=== PATIENT | female | born 1940 | race Caucasian/White ===

== ENCOUNTER → 2016-12-13 | Outpatient (CLI) | payer OTHER ==
[~2016-12-13] MED LIST: ASPEC325 PO; ENAL5TAB83 PO; GLC500 PO; INSU1INJ7 SC; ISOS30TA3 PO; LSX/40 PO; METO50TA7 PO; MULTTAB58 PO; OXGN; SIMV80TA2 PO; SITA100T3 PO; SPIR25TA PO; TRAZ50TA35 PO
--- NOTE | 2016-12-13 15:47 | MAMMOGRAPHY REPORT ---
BILATERAL DIGITAL SCREENING MAMMOGRAM TOMOSYNTHESIS WITH CAD: 12/13/2016 CLINICAL HISTORY: Asymptomatic. Personal history of breast cancer. TECHNIQUE: Breast tomosynthesis in addition to standard 2D mammography was performed. Current study was also evaluated with a Computer Aided Detection (CAD) system. COMPARISON: Comparison is made to exams dated: 11/09/2015 mammogram, 11/03/2014 mammogram, 10/01/2012 elva mogram, 09/29/2011 mammogram, 09/20/2010 mammogram, and 09/17/2009 mammogram - [facility]. BREAST COMPOSITION: The tissue of both breasts is almost entirely fatty. FINDINGS: The left MLO view is suboptimal due to a large pacemaker in the superior left chest wall, a nd inability to obtain inclusion of posterior tissue within the [id number]. There is evidence of prior surgery in the left breast, with expected architectural distortion and surgical clips in the la teral breast. There are scattered benign-appearing calcifications and moderate vascular calcificatio n. No new suspicious mass, architectural distortion or cluster of microcalcifications is seen. IMPRESSION: ACR BI-RADS CATEGORY 1: NEGATIVE There is no mammographic evidence of malignancy, within the limitations of the exam with difficulty i ncluding posterior left breast tissue on the MLO view due to a large pacemaker. A 1 year screening ma mmogram is recommended. The patient will receive written notification of the results. Approximately 10% of breast cancers are not detected with mammography. A negative mammographic report should not delay biopsy if a clinically suggestive mass is present. Rosetta Dos Santos M.D. ay/:12/13/2016 13:52:25 Managed Care Director: Alaina NOWAK(R)(M), [facility] letter sent: Normal 1/2 BI-RADS Code: ACR BI-RADS Category 1: Negative
== END | disposition home or self-care (01) ==
LOC: C.MAMM 13:14
PROVIDERS: ATTEND Family Medicine
DX: Z12.31 Encounter for screening mammogram for malignant neoplasm of breast (principal); Z85.3 Personal history of malignant neoplasm of breast

== ENCOUNTER 2018-09-24 10:57 | Inpatient (IN) ==
[2018-09-24] MEDS ORDERED: NALOXONE HCL 0.4 MG/1 ML VIAL/CARP ONE (11:02)
[2018-09-24] MEDS ORDERED: RAPID SEQUENCE INDUCTION BAG ONE (11:04)
[2018-09-24] MEDS ORDERED: VECURONIUM BROMIDE 10 MG VIAL IV STA (11:14)
[2018-09-24] MEDS ORDERED: PROPOFOL IV EMULSION 10 MG/ML 100 ML VIAL IV ONE (11:15)
[2018-09-24] MEDS ORDERED: ALBUT/IPRATROP 3MG/0.5MG NEB 3 ML VIAL NEB ONE (11:15)
[2018-09-24] MEDS ORDERED: MAGNESIUM SULFATE / D5W 1 GM/100 ML BAG IV ONE (11:15)
[2018-09-24] MEDS ORDERED: FUROSEMIDE 40 MG/4 ML VIAL IV STA (11:22)
[2018-09-24] MEDS ORDERED: PIPERACILL/TAZOBAC CONSULT ACTIVE PRN ×2 (11:22→14:18)
[2018-09-24] MEDS ORDERED: LEVOFLOXACIN/D5W 750 MG/150 ML BAG IV STA (11:22)
[2018-09-24] MEDS ORDERED: VANCOMYCIN CONSULT ACTIVE PRN ×2 (11:22→14:17)
[2018-09-24] MEDS ORDERED: VANCOMYCIN HCL 1,000 MG/270 ML BAG IV STA (11:22)
[2018-09-24] MEDS ORDERED: PIPERACILLIN/TAZOBACTAM 4.5 GM/120 ML BAG IV ONE (11:22)
--- NOTE | 2018-09-24 11:32 | XRay Report ---
XR chest 1V portable HISTORY: 78 years-old Female Sepsis acute sepsis COMPARISON: Chest radiograph 11/12/2011 TECHNIQUE: Supine AP view of the chest FINDINGS: Cardiac silhouette is upper limits of normal in size. Mitral annular calcifications noted. Calcificat ion the thoracic aortic arch. Left subclavian pacer/AICD redemonstrated. No pneumothorax. Blunting of the costophrenic angles with hyperinflation. Bilateral right greater than left mixed interstitial an d alveolar opacities are noted. Lungs are hyperinflated. Degenerative changes of the shoulders and sp ine. Endotracheal tube overlies the midline, 5.6 cm superior to the urmila. IMPRESSION: 1. Endotracheal tube terminates 5.6 cm superior to the urmila. 2. Right greater than left bilateral mixed interstitial and alveolar opacities are suggestive of mult ifocal pneumonia with asymmetric pulmonary edema considered less likely. 3. Possible trace pleural effusions. The above report was generated using voice recognition software. It may contain grammatical, syntax o r spelling errors. Electronically signed by: Stas Ordaz M.D. 09/24/2018 11:31 AM
[2018-09-24 11:41] LABS: Hematocrit (blood only) 41.6 % (37-47); Hemoglobin 13.7 g/dL (12.0-16.0); Mean Corpuscular Hgb Conc 32.9 g/dL (32-36); Mean Corpuscular Volume 102.2 fL (80-100); Mean Platelet Volume 11.7 fL (7.4-10.4); Platelet Count 232 K/uL (130-400); RDW Coefficient of Variation 13.2 % (11.5-14.5); RDW Standard Deviation 49.6 fL (36.4-46.3); Red Blood Count 4.07 M/uL (4.2-5.4); White Blood Count 17.57 K/uL (4.8-10.8)
[2018-09-24 11:45] LABS: iSTAT Creatinine 1.2 mg/dl (0.6-1.3); iSTAT Hemoglobin 13.9 g/dl (12.0-16.0); iSTAT Ionized Calcium 1.21 mmol/l (1.12-1.32)
[2018-09-24 11:53] LABS: Partial Thromboplastin Ratio 0.9; Partial Thromboplastin Time 23.9 Seconds (21.0-31.0); Prothrombin Time 10.1 Seconds (9.0-12.0)
[2018-09-24 11:55] LABS: Alanine Aminotransferase 24 U/L (12-78); Albumin Level 3.1 gm/dl (3.4-5.0); Aspartate Aminotransferase 30 U/L (15-37); BUN Creatinine Ratio 12.5 (10-20); Blood Urea Nitrogen 17 mg/dl (7-18); Calcium 8.8 mg/dl (8.5-10.1); Carbon Dioxide 27 mmol/L (21-32); Chloride 109 mmol/L (98-107); Est GFR (African American) 43.4; Est GFR (Non-African American) 37.4; Glucose 261 mg/dl (70-99); Sodium 143 mmol/L (136-145)
[2018-09-24] MEDS ORDERED: ICU PROTOCOL FOR HYPERGLYCEMIA PRN (11:59)
[2018-09-24 12:00] LABS: Albumin Globulin Ratio 0.8 (0.9-2); Alkaline Phosphatase 78 U/L (45-117); Bilirubin,Total 0.4 mg/dl (0.2-1); Creatine Kinase 42 U/L (26-192); Creatine Kinase MB < 1.0 ng/ml (0.5-3.6); NT Pro B Type Natriuretic Pept 5701 pg/ml (0-1800); Total Protein 7.1 gm/dl (6.4-8.2); Troponin I < 0.015 ng/ml (0-0.045)
[2018-09-24 12:04] LABS: Basophils # (auto) 0.08 K/uL (0-0.2); Basophils % (auto) 0.5 %; Echinocytes 1+; Eosinophils # (auto) 0.16 K/uL (0-0.5); Eosinophils % (auto) 0.9 %; Immature Granulocytes # (auto) 0.07 K/uL (0.00-0.02); Immature Granulocytes % (auto) 0.4 %; Lymphocytes # (auto) 9.04 K/uL (1.2-3.4); Lymphocytes % (auto) 51.5 %; Monocytes # (auto) 0.69 K/uL (0.11-0.59); Monocytes % (auto) 3.9 %; Neutrophils # (auto) 7.53 K/uL (1.4-6.5); Neutrophils % (auto) 42.8 %
--- NOTE | 2018-09-24 12:09 | History & Physical Report ---
Date of Service September 24, 2018 Assessment & Plan (1) Acute respiratory failure requiring reintubation: -patient was intubated in the emergency room on 09/14/18 for acute respiratory failure by ED physician acute respiratory failure may be due to acute on chronic systolic heart failure vs pneumonia vs COPD exacerbation -admission CXR: Right greater than left bilateral mixed interstitial and alveolar opacities are suggestive of multifocal pneumonia with asymmetric pulmonary edema considered less likely. Possible trace pleural effusions. -on mechanical intubation -history of COPD and tobacco use, give nebulizer treatments q6 hours, advise tobacco cessation when patient can be extubated an stable -started empirically on Zosyn and Levaquin antibiotic by ED provider, continue for now, follow blood cultures and procalcitonin -chronic ischemic heart disease with diffuse multifactorial cardiomyopathy, Class III congestive heart failure s/p 01/2006 biventricular pacemaker/defibrillator implantation with generator exchange and RV lead replacement in June 2011 (last generator exchange on September 25, 2017) -obtain repeat echocardiogram -admission BNP above 5000, start Lasix 40 mg IV BID as blood pressure tolerates -as patient is intubated, will hold off long acting Metoprolol succinate 50 mg BID as updated in 08/28/18 outpatient cardiology notes -use metoprolol 5 mg IV q4 hours as needed if heart rate above 110 bpm -hold off home dose isosorbide 30 mg daily for now -hold off atorvastatin for now -continue wren while intubated -ICU admission from ED on 09/24/18, appreciate ICU recommendations and management Type 2 diabetes mellitus without usp current use of insulin -outpatient HbA1c under 6.5 -hold off metformin for now -sliding scale insulin as needed chronic kidney disease -as per outpatient notes -renally dose medications as needed -monitor renal function other pertinent medical issues in the past as per outpatient notes carotid occlusive disease S/P right carotid endarterectomy, prior cerebral infarction -continue home dose aspirin 324 mg daily DVT ppx: heparin subcut q 8 hours Code Status -patient was intubated in the emergency room on 09/14/18 for acute respiratory failure by ED physician -As per outpatient Living Will uploaded to outpatient [facility] records, patient had signed on 08/25/03 Living Will that if patient was in a terminal ondition or in a state of permanent unconsciousness that she do no want cardiac resuscitation, do not want mechanical respiration, do not want tube feeding or any artificial form of nutrition, do not want blood or blood product, do not want any form of surgery of invasive diagnostic tests, kidney dialysis, do no want antibiotics. -Patient had designated in the Living Will the surrogate who is Gonzales Braxton [phone] who is patient's family member (son) who was not available to discuss when patient in the ED -ICU staff and hospitalist was able to contact on telephone Alaina Ivory [phone] on goals of care and she said she will discuss further with medical providers after talking with other family members Patient admitted by hospitalist Dr. Melvin Tatum and will be followed by hospitalist Dr. Fish starting on 09/25/18 History of Present Illness as per 08/19/18 cardiology notes: "History includes chronic ischemic heart disease with diffuse multifactorial cardiomyopathy, Class III congestive heart failure s/p 01/2006 biventricular pacemaker/defibrillator implantation with generator exchange and RV lead replacement in June 2011 (last generator exchange on September 25, 2017), severe chronic obstructive pulmonary disease with hypoxemia (O2 QHS) and continued tobacco abuse, type II diabetes mellitus, stage III chronic kidney disease, carotid occlusive disease S/P right carotid endarterectomy, prior cerebral infarction, hypertension, hyperlipidemia, breast cancer, obesity, arthritis, and depression" patient was intubated in the emergency room on 09/14/18 for acute respiratory failure by ED physician and started on broad spectrum antibiotics and ED provider concerned whether there was CHF exacerbation. ICU was contacted. Hospitalist was also contacted for admission History could not be obtained from patient as she was intubated an sedated. As per outpatient Living Will uploaded to outpatient [facility] records, patient had signed on 08/25/03 Living Will that if patient was in a terminal ondition or in a state of permanent unconsciousness that she do no want cardiac resuscitation, do not want mechanical respiration, do not want tube feeding or any artificial form of nutrition, do not want blood or blood product, do not want any form of surgery of invasive diagnostic tests, kidney dialysis, do no want antibiotics. Patient had designated in the Living Will the surrogate who is Gonzales Braxton [phone] who is patient's family member (son) who was not available to discuss when patient in the ED ICU staff and hospitalist was able to contact on telephone Alaina Ivory [phone] on goals of care and she said she will discuss further with medical providers after talking with other family members Primary Care Provider: Eugene Zaman MD Allergies Allergy/AdvReac Type Severity Reaction Status Date / Time No Known Allergies Allergy Unknown Verified 09/25/17 06:31 Home Medications Home Medications Medication Instructions Recorded Confirmed Type acetaminophen [Tylenol] 325 mg PO Q6H PRN 09/24/18 09/24/18 History albuterol sulfate [ProAir HFA] 2 puff INHALATION Q4H PRN 09/24/18 09/24/18 History alendronate 70 mg PO WK 09/24/18 09/24/18 History aspirin 325 mg PO DAILY 09/24/18 09/24/18 History atorvastatin 40 mg PO DAILY 09/24/18 09/24/18 History calcium carbonate [Calcium 600] 600 mg PO DAILY 09/24/18 09/24/18 History furosemide 20 mg PO DAILY 09/24/18 09/24/18 History gabapentin 300 mg PO TID 09/24/18 09/24/18 History isosorbide mononitrate 30 mg PO DAILY 09/24/18 09/24/18 History levalbuterol HCl [Xopenex] 0.63 mg INHALATION QID PRN 09/24/18 09/24/18 History metformin 1,000 mg PO BID 09/24/18 09/24/18 History metoprolol succinate 50 mg PO BID 09/24/18 09/24/18 History multivitamin 1 tab PO DAILY 09/24/18 09/24/18 History prednisone 0 mg PO UD 09/24/18 09/24/18 History tiotropium bromide [Spiriva with 1 cap INHALATION DAILY 09/24/18 09/24/18 History HandiHaler] Past Med/Surg History Medical History COPD (chronic obstructive pulmonary disease) (Chronic) Social History Smoking Status: Current every day smoker Review of Systems Review of Systems: Unobtainable due to endotracheal tube Physical Exam Constitutional: intubated Eyes: + dilated pupils Neck: normal visual inspection Respiratory: intubate don mechanical ventiltation Cardiovascular: Rate/Rhythm: regular rate and regular rhythm Gastrointestinal (Abdomen): normal bowel sounds, soft, nontender, no hepatosplenomegaly Musculoskeletal: Head/Neck/Chest: normocephalic and head atraumatic Neurologic: obtunded, sedated. eyes are minimally reactive to light Genitourinary: wren Results & Data Vital Signs (Past 12 Hours) Vital Signs Temp Pulse Pulse Resp BP Pulse Ox 09/24/18 12:00 95 H 151/81 H 95 09/24/18 11:55 96 H 157/84 H 93 09/24/18 11:54 36.6 C 09/24/18 11:51 95 H 143/68 H 96 09/24/18 11:47 90 14 96 09/24/18 11:45 94 H 124/81 96 09/24/18 11:40 94 H 129/89 95 09/24/18 11:37 90 14 96 09/24/18 11:35 92 H 137/76 96 09/24/18 11:30 90 136/71 96 09/24/18 11:26 88 96 09/24/18 11:25 86 116/69 96 09/24/18 11:21 85 100/66 97 09/24/18 11:20 45 L 97 09/24/18 11:15 87 133/71 97 09/24/18 11:14 93 H 121/100 95 09/24/18 11:10 98 H 95 09/24/18 11:05 103 H 85 L 09/24/18 11:04 102 H 85 L 09/24/18 11:02 103 H 132/86 82 L
[2018-09-24 12:14] LABS: Appearance Urine Turbid (Clear); Bacteria Urine Automated 4+ (Negative); Bilirubin Urine Negative (Negative); Blood Urine 2+ (Negative); Color Urine Yellow; Epithelial Cell Urine Auto >30 /lpf (0-5); Glucose Urine UA Negative (Negative); Ketones Urine Negative (Negative); Leukocyte Esterase Urine 3+ (Negative); Nitrite Urine Positive (Negative); Protein Urine 3+ (Negative); Specific Gravity Urine 1.016 (1.000-1.030); Urobilinogen Urine Negative (Negative); WBC Urine Automated >30 /hpf (0-5); pH Urine 5.5 (4.5-7.5)
[2018-09-24 12:22] LABS: Cast Urine Automated 0 /lpf (0-5)
[2018-09-24] MEDS ORDERED: LEVALBUTEROL 1.25MG/0.5ML NEB NEB SCH ×2 (12:45→14:00)
[2018-09-24] MEDS ORDERED: OPTIRAY 320 125ml IV PRN (12:51)
--- NOTE | 2018-09-24 13:00 | CT Scan Report ---
CT SCAN OF THE BRAIN WITHOUT IV CONTRAST CLINICAL HISTORY: Change in mental status COMPARISON STUDY: No priors. TECHNIQUE: Unenhanced axial CT scan of the brain is performed from the vertex to the skull base. A do se lowering technique was utilized adhering to the principles of ALARA. FINDINGS: Brain parenchyma: There are age-related involutional changes noting mild subcortical and periventric ular microangiopathic change. There is no hemorrhage, mass effect, or evidence of acute territorial i schemia by CT criteria. A small chronic lacunar infarct is noted in the left cerebellar hemisphere. G ray-white matter differentiation is preserved. No extra-axial fluid collection is seen. Ventricles, sulci, cisterns: Prominent secondary to involutional change. Intracranial vasculature: There is atherosclerotic calcification of the cavernous carotid and vertebr al arteries. Calvarium: Unremarkable. Sinuses and mastoids: The visualized paranasal sinuses are clear. The mastoid air cells are well pneu matized. Orbits: The bony orbits are grossly intact. There are bilateral ocular lens implants. IMPRESSION: There is no hemorrhage, mass effect, or evidence of acute territorial ischemia by CT luisa amato. Electronically signed by: Edis Herrera M.D. 09/24/2018 12:59 PM
--- NOTE | 2018-09-24 13:10 | CT Scan Report ---
ABDOMEN AND PELVIS CT WITH IV CONTRAST CT DOSE: HISTORY: Generalized abdominal pain. TECHNIQUE: Multiaxial CT images of the abdomen and pelvis were performed following the use of intrave nous contrast. A dose lowering technique was utilized adhering to the principles of ALARA. COMPARISON STUDY: None. FINDINGS: Interlobular septal thickening, patchy airspace opacities, and small bilateral pleural effu sions at the lung bases consistent with pulmonary edema. The heart is mildly enlarged. Pacemaker wire s are noted. Nasogastric tube terminates in the gastric antrum. No pneumoperitoneum. No pneumatosis. No suspicious lytic or blastic osseous lesions. Extensive calcified plaque throughout the aorta, jason c, and renal arteries. The main portal vein is patent. Mild body wall edema. Cholecystectomy. Mild pe riportal edema. No hepatic or splenic masses. The adrenal glands and pancreas are unremarkable. No hy dronephrosis. Bilateral cortical renal scarring and bilateral renal cysts are noted. No retroperitone al lymphadenopathy. The bladder is decompressed by Newman catheter. The uterus and adnexa are unremark able. Mild bilateral perinephric edema. Colonic diverticulosis. No evidence for diverticulitis. Moder ate well-formed stool within the distal colon. The majority of the colon is decompressed resulting in suboptimal evaluation. However, there is no definite bowel wall thickening or obstruction. Normal ap pendix. IMPRESSION: 1. No bowel wall thickening or obstruction. 2. Normal appendix. 3. Pulmonary edema and small bilateral pleural effusions. This is better appreciated on the same day chest CTA. 4. Satisfactory support line placement as described above. 5. Mild body wall edema and mild bilateral perinephric edema. 6. Moderate well-formed stool within the distal colon. 7. Colonic diverticulosis. Electronically signed by: Sudheer Cuello M.D. 09/24/2018 1:09 PM
--- NOTE | 2018-09-24 13:11 | CT Scan Report ---
CT angio chest PE protocol CT DOSE: HISTORY: Chest pain PE TECHNIQUE: Multiaxial CT images of the chest were performed following the intravenous administration of contrast to evaluate the pulmonary arteries. Maximal intensity projection images were also obtaine d. A dose lowering technique was utilized adhering to the principles of ALARA. COMPARISON STUDY: None. FINDINGS: Pulmonary vasculature enhances appropriately. There are no fixed filling defects. Heart is mildly enlarged. Thoracic aorta is negative for aneurysm. There is no endotracheal tube 4.5 cm above the urmila. Nasogastric tube within the stomach. Attenuation of lung parenchyma shows diffuse bilateral parenchymal infiltrative change versus compone nt of pulmonary edema. There are small bilateral pleural effusions. Limited evaluation of the upper a bdomen is unremarkable. IMPRESSION: 1. No evidence of pulmonary embolus.. 2. Findings of diffuse bilateral pulmonary edema versus diffuse bilateral parenchymal infiltrative ch candido. 3. A moderate amount of debris is identified within the proximal to mid bronchial system. 4. Small bilateral pleural effusions. 5. Tube positions as noted and considered acceptable. The above report was generated using voice recognition software. It may contain grammatical, syntax or spelling errors. Electronically signed by: Eugene Simental M.D. 09/24/2018 1:09 PM
[2018-09-24] MEDS ORDERED: METOPROLOL TARTRATE 1 MG/ML VIAL IV PRN (13:14)
[2018-09-24] MEDS ORDERED: CARBOHYDRATES FOR HYPOGLYCEMIA PO PRN (13:14)
[2018-09-24] MEDS ORDERED: GLUCAGON FOR INJ 1 MG VIAL SQ PRN (13:14)
[2018-09-24] MEDS ORDERED: GLUCOSE 10 TABS/TUBE PO PRN (13:14)
[2018-09-24] MEDS ORDERED: GLUCOSE 40% GEL 15 GM TUBE PO PRN (13:14)
[2018-09-24] MEDS ORDERED: ACETAMINOPHEN 1000 MG/100 ML IV IV PRN (13:14)
[2018-09-24] MEDS ORDERED: DEXTROSE 50% 50 ML SYRINGE IV PRN (13:14)
--- NOTE | 2018-09-24 13:19 | CT Scan Report ---
CT ANGIOGRAM OF THE BRAIN; CT ANGIOGRAM OF THE NECK CLINICAL HISTORY: Change in mental status. COMPARISON STUDY: Unenhanced CT of the brain dated 09/24/2018. TECHNIQUE: Following the IV administration of 120 of Optiray 320, CT angiogram of the head and neck w as performed from the aortic arch to the vertex. Images are reviewed in the axial, sagittal, and [place] nal planes. 3-D MIPS images are created and assessed. IV contrast was administered without complicati on. All measurements were calculated based on NASCET criteria. A dose lowering technique was utilize d adhering to the principles of ALARA. The examination is degraded by motion artifact. CT DOSE: 1271.02 mGy.cm FINDINGS: Brain parenchyma: There is age-related involutional change noting mild subcortical and periventricula r microangiopathic disease. There is no hemorrhage, mass effect, or evidence of acute territorial isc hemia by CT criteria. There is no evidence of enhancing mass lesion on the angiogram phase images. Th e ventricles, sulci, and cisterns are prominent second or to involutional change. A chronic lacunar i nfarct is noted in the left cerebellar hemisphere. Zapien-white matter differentiation is preserved. No extra-axial fluid collection is seen. Thoracic aorta: There is atherosclerotic calcification of the thoracic aorta. Visualized portions of the thoracic aorta are normal in caliber. The aortic arch demonstrates standard 3-vessel anatomy. Right carotid arterial system: The right common carotid artery is widely patent, as are the right int ernal and external carotid arteries. There is dense atherosclerotic calcification of the carotid bulb with no significant luminal narrowing. There is tortuosity of the distal right internal carotid tabatha ry. Left carotid arterial system: The left common carotid artery is widely patent. There is advanced athe rosclerotic calcification of the carotid bulb and the proximal internal carotid artery which causes a pproximately 50% focal stenosis of the proximal left internal carotid artery (axial image #110). The remainder of the left internal carotid artery and the left external carotid artery are patent. Vertebral arteries: The vertebral arteries are widely patent bilaterally and codominant. Subclavian arteries: Widely patent bilaterally. Intracranial vasculature: There is atherosclerotic calcification of the cavernous carotid and vertebr al arteries. There is a large right posterior communicating artery. The internal carotid arteries are patent at the skull base, as are the anterior and middle cerebral arteries bilaterally. The vertebro basilar system and posterior cerebral arteries are widely patent. The vertebral arteries are codomina nt. There is no aneurysm, high-grade stenosis, or focal vessel cut off seen throughout the intracrani al circulation. Jugular veins: Widely patent bilaterally. Dural sinuses: Patent. Upper chest: Endotracheal and enteric tubes are in place. There is diffuse septal thickening and airs pace consolidation seen throughout the upper lobe lung parenchyma pacemaker leads are partially image d. Orbits: The bony orbits are intact. Orbital contents are normal in appearance noting bilateral ocular lens implants. Soft tissues: Layering fluid is noted within the pharynx. As noted above, endotracheal and enteric tu bes are in place. The thyroid gland is enlarged, heterogeneous, and multinodular. The largest nodule is seen in the left lobe and measures up to 3.1 cm. The salivary glands are normal in appearance. No cervical lymphadenopathy is seen. Skeletal structures: The skeletal structures are osteopenic. The calvarium appears intact. The cervic al spine is maintained noting multilevel spondylosis. Sinuses and mastoids: The paranasal sinuses are clear. The mastoid air cells are well pneumatized. IMPRESSION: 1. There is no hemorrhage, mass effect, or evidence of acute territorial ischemia by CT criteria noti ng angiographic phase technique. 2. Unremarkable CT angiogram of the brain. 3. Calcified atherosclerotic plaque causes approximately 50% luminal narrowing of the proximal left i nternal carotid artery. 4. Otherwise unremarkable CT angiogram of the neck. 5. Diffuse involving the septal thickening and airspace consolidation is seen throughout the upper lo be lung parenchyma. This likely represents congestive failure with interstitial edema. Correlate clin ically for evidence of superimposed pneumonia. Electronically signed by: Edis Herrera M.D. 09/24/2018 1:18 PM
[2018-09-24] MEDS ORDERED: FUROSEMIDE 40 MG in SYRINGE 0 ML IV SCH (13:20)
[2018-09-24] MEDS ORDERED: SEVERE STRESS LEVEL ONE (13:45)
[2018-09-24] MEDS ORDERED: INSULIN PROTOCOL GOAL RANGE ONE (13:45)
[2018-09-24] MEDS ORDERED: NovoLIN-R BOLUS FROM BAG IV ONE (14:00)
[2018-09-24] MEDS ORDERED: INSULIN REGULAR 250 UNITS in SODIUM CHLORIDE 0.9% 247.5 ML IV SCH (14:00)
[2018-09-24] MEDS ORDERED: HEPARIN SOD 5,000 UNIT/0.5 ML VIAL SQ SCH (14:00)
[2018-09-24] MEDS ORDERED: methylPREDNISolone 60 MG in SYRINGE 0 ML IV SCH (14:00)
[2018-09-24] MEDS ORDERED: LEVOFLOXACIN CONSULT ACTIVE PRN (14:18)
[2018-09-24] MEDS: ALBUT/IPRATROP 3MG/0.5MG NEB 3 ML VIAL INH SCH ×2 (14:35→18:19)
[2018-09-24 16:12] LABS: iSTAT Allen Test Pass; iSTAT Art Bld Gas pCO2 Correct 57 mmHg (35-46); iSTAT Art Bld Gas pH Corrected 7.239 (7.35-7.45); iSTAT Arterial Blood Gas HCO3 24 meg/L (19-24); iSTAT Arterial Blood Gas pCO2 57 mmHg (35-46); iSTAT Arterial Blood Gas pH 7.24 (7.35-7.45); iSTAT Carbon Dioxide 26 mEq/l (24-31); iSTAT FiO2 50 %; iSTAT Site L Radial
--- NOTE | 2018-09-24 16:23 | Pharmacy Report ---
Pharmacy Abx Dose Short Note - Date of Service September 24, 2018 - Assessment & Plan Assessment * 78 year old F intubated in ICU with PNA vs. COPD exacerbation receiving Zosyn, levofloxacin, and vancomycin * Nasal MRSA swab pending * Procalcitonin negative on admission. Ordered repeat for tomorrow as peak may not be seen for 6/24 hours. * Renal - SCr elevated on admission, but unknown baseline. Estimated CrCL no better than 25 mL/min but could be worse if baseline is lower. Vancomycin * 16 mg/kg ordered in ED. Will give one-time supplemental dose now to bring up to a total of 25 mg/kg * Will dose by level for now 2nd uncertain clearance / renal function * Estimated t1/2 27 hours at this time - OK to wait until tomorrow AM to check level Plan * Vancomycin 500 mg IV x1 now (in addition to 1000 mg in ED) * Random level with AM labs tomorrow Pharmacy will continue to follow and will adjust dose/frequency as necessary. Thank you.
[2018-09-24] MEDS ORDERED: VANCOMYCIN HCL 500 MG in 0.9 % SODIUM CHLORIDE 100 ML IV ONE (16:30)
[2018-09-24] MEDS ORDERED: INSULIN ASPART 100 UNITS/ML 3 ML PEN SC SCH ×2 (16:30)
[2018-09-24] MEDS ORDERED: LORazepam 0.5 MG/1 ML VIAL IV STA (16:31)
--- NOTE | 2018-09-24 16:49 | Emergency Department Note ---
Entered by Annabelle Medrano acting as a scribe for History of Present Illness General Chief complaint: Shortness of Breath/Dyspnea Time Seen by Provider: 09/24/18 11:10 Source: EMS Mode of arrival: EMS Limitations: no limitations and altered mental status History of Present Illness Provider complaint: respiratory distress Onset (ago): hour(s) (this morning) Location: chest Pain Consistency: + other (episode) Quality: + other (SOB) Relieved By: not by medication Associated symptoms: + cough (chronic); no chest pain Treatments prior to arrival: other (Solu Medrol, breathing treatments) The patient is a 78 year old female who presents to the ER via EMS from home in respiratory distress that began this morning. EMS reports that upon arrival, the patient was stating that "she could not breathe and was feeling as if she were going to pass out." EMS states that the patient has a history of COPD and is a smoker. EMS also notes that the patient recently smoked but do not know when. EMS reports that the patient was given breathing treatments as well as 125 of Solu Medrol in route but showed no improvement. Per EMS, the patient did not complain of chest pain and does have a chronic cough. EMS states that the patient's blood sugar level was 200 upon arrival. Home Medications Home Medications Medication Instructions Recorded Confirmed Type acetaminophen [Tylenol] 325 mg PO Q6H PRN 09/24/18 09/24/18 History albuterol sulfate [ProAir HFA] 2 puff INHALATION Q4H PRN 09/24/18 09/24/18 History alendronate 70 mg PO WK 09/24/18 09/24/18 History aspirin 325 mg PO DAILY 09/24/18 09/24/18 History atorvastatin 40 mg PO DAILY 09/24/18 09/24/18 History calcium carbonate [Calcium 600] 600 mg PO DAILY 09/24/18 09/24/18 History furosemide 20 mg PO DAILY 09/24/18 09/24/18 History gabapentin 300 mg PO TID 09/24/18 09/24/18 History isosorbide mononitrate 30 mg PO DAILY 09/24/18 09/24/18 History levalbuterol HCl [Xopenex] 0.63 mg INHALATION QID PRN 09/24/18 09/24/18 History metformin 1,000 mg PO BID 09/24/18 09/24/18 History metoprolol succinate 50 mg PO BID 09/24/18 09/24/18 History multivitamin 1 tab PO DAILY 09/24/18 09/24/18 History prednisone 0 mg PO UD 09/24/18 09/24/18 History tiotropium bromide [Spiriva with 1 cap INHALATION DAILY 09/24/18 09/24/18 History HandiHaler] Allergies Allergy/AdvReac Type Severity Reaction Status Date / Time No Known Allergies Allergy Unknown Verified 09/25/17 06:31 Past Med/Surg History Medical History COPD (chronic obstructive pulmonary disease) (Chronic) Acute respiratory failure with hypoxia and hypercapnia Cardiomyopathy Chronic kidney disease, stage 3 Diabetes mellitus type 2 in nonobese Major depressive disorder Pulmonary hypertension Surgical History AICD (automatic cardioverter/defibrillator) present History of right-sided carotid endarterectomy Family History Other Medical history non-contributory Social History Preferred Language: Polish Communication Ability: intubated Communication Ability Comment: intubated Cost Engineer Required: No Beliefs That Will Affect Care: None marital status: / marital status details: 15 years ago Current Living Situation: Alone current occupational status: retired Other Information That Helps Us Care for You: No Feels Safe at Home: Yes Safety Concerns: Feels Safe At This Time Smoking Status: Heavy tobacco smoker Tobacco Type: cigarettes Years Smoked: 44 Cigarettes Per Day: 2 packs per day Do You Dip or Chew Tobacco: No Hx Alcohol Use: No Hx Substance Use: No Review of Systems See HPI for pertinent positives & negatives. and A total of 10 systems reviewed and were otherwise negative Physical Exam Vital Signs Vital Signs - 24 hr 09/24/18 10:57 09/24/18 11:02 09/24/18 11:04 Temperature Temperature Source Sepsis Recent Fever Within 48 Hours No Sepsis New/Unexplained Change in Mental Status No Sepsis Action Taken by Nursing No Action Required End-Tidal CO2 Pulse Rate 103 H 102 H Pulse Rate [Apical] Pulse Rate from SpO2 Sensor 159 H 102 H Respiratory Rate Respiratory Effort / Characteristics Gasping/Agonal Respiratory Pattern Agonal Apnea Blood Pressure 132/86 Blood Pressure Mean 101 Pulse Oximetry 82 L 85 L Oxygen Delivery Method Non-rebreather Non-rebreather Non-rebreather Oxygen Flow Rate 15 Fraction of Inspired Oxygen 09/24/18 11:05 09/24/18 11:10 09/24/18 11:14 Temperature Temperature Source Sepsis Recent Fever Within 48 Hours Sepsis New/Unexplained Change in Mental Status Sepsis Action Taken by Nursing End-Tidal CO2 Pulse Rate 103 H 98 H 93 H Pulse Rate [Apical] Pulse Rate from SpO2 Sensor 103 H 99 H 95 H Respiratory Rate Respiratory Effort / Characteristics Respiratory Pattern Blood Pressure 121/100 Blood Pressure Mean 107 Pulse Oximetry 85 L 95 95 Oxygen Delivery Method Ambu-Bag Ambu-Bag Ambu-Bag Oxygen Flow Rate Fraction of Inspired Oxygen 09/24/18 11:15 09/24/18 11:20 09/24/18 11:21 Temperature Temperature Source Sepsis Recent Fever Within 48 Hours Sepsis New/Unexplained Change in Mental Status Sepsis Action Taken by Nursing End-Tidal CO2 Pulse Rate 87 45 L 85 Pulse Rate [Apical] Pulse Rate from SpO2 Sensor 93 H 87 86 Respiratory Rate Respiratory Effort / Characteristics Respiratory Pattern Blood Pressure 133/71 100/66 Blood Pressure Mean 91 77 Pulse Oximetry 97 97 97 Oxygen Delivery Method Mechanical Vent Mechanical Vent Mechanical Vent Oxygen Flow Rate Fraction of Inspired Oxygen 09/24/18 11:25 09/24/18 11:26 09/24/18 11:30 Temperature Temperature Source Sepsis Recent Fever Within 48 Hours Sepsis New/Unexplained Change in Mental Status Sepsis Action Taken by Nursing End-Tidal CO2 Pulse Rate 86 88 90 Pulse Rate [Apical] Pulse Rate from SpO2 Sensor 86 88 89 Respiratory Rate Respiratory Effort / Characteristics Respiratory Pattern Blood Pressure 116/69 136/71 Blood Pressure Mean 84 92 Pulse Oximetry 96 96 96 Oxygen Delivery Method Mechanical Vent Mechanical Vent Mechanical Vent Oxygen Flow Rate Fraction of Inspired Oxygen 09/24/18 11:35 09/24/18 11:37 09/24/18 11:40 Temperature Temperature Source Sepsis Recent Fever Within 48 Hours Sepsis New/Unexplained Change in Mental Status Sepsis Action Taken by Nursing End-Tidal CO2 49 Pulse Rate 92 H 90 94 H Pulse Rate [Apical] Pulse Rate from SpO2 Sensor 93 H 94 H Respiratory Rate 14 Respiratory Effort / Characteristics Respiratory Pattern Blood Pressure 137/76 129/89 Blood Pressure Mean 96 102 Pulse Oximetry 96 96 95 Oxygen Delivery Method Mechanical Vent Mechanical Vent Oxygen Flow Rate Fraction of Inspired Oxygen 50 09/24/18 11:45 09/24/18 11:47 09/24/18 11:51 Temperature Temperature Source Sepsis Recent Fever Within 48 Hours Sepsis New/Unexplained Change in Mental Status Sepsis Action Taken by Nursing End-Tidal CO2 44 Pulse Rate 94 H 95 H Pulse Rate [Apical] 90 Pulse Rate from SpO2 Sensor 94 H 95 H Respiratory Rate 14 Respiratory Effort / Characteristics Mechanically Ventilated Respiratory Pattern Blood Pressure 124/81 143/68 H Blood Pressure Mean 95 93 Pulse Oximetry 96 96 96 Oxygen Delivery Method Mechanical Vent Mechanical Vent Mechanical Vent Oxygen Flow Rate Fraction of Inspired Oxygen 50 09/24/18 11:54 09/24/18 11:55 Temperature 36.6 C Temperature Source Rectal Sepsis Recent Fever Within 48 Hours Sepsis New/Unexplained Change in Mental Status Sepsis Action Taken by Nursing End-Tidal CO2 31 Pulse Rate 96 H Pulse Rate [Apical] Pulse Rate from SpO2 Sensor 96 H Respiratory Rate Respiratory Effort / Characteristics Respiratory Pattern Blood Pressure 157/84 H Blood Pressure Mean 108 Pulse Oximetry 93 Oxygen Delivery Method Mechanical Vent Oxygen Flow Rate Fraction of Inspired Oxygen GENERAL: Acute distress, pale, and cyanotic. HENT: Normocephalic, atraumatic. Oropharynx unremarkable. EYES: Normal conjunctiva. Sclera non-icteric. NECK: Supple. No nuchal rigidity. FROM. No JVD. RESPIRATORY: Agonal respirations. CARDIAC: Regular rate, normal rhythm. Extremities warm and well perfused. Pulses equal. ABDOMEN: Soft, non-distended. No tenderness to palpation. No rebound or guarding. No masses. RECTAL: Deferred. MUSCULOSKELETAL: Chest examination reveals no tenderness. The back is symmetrical on inspection without obvious abnormality. There is no CVA tenderness to palpation. No joint edema. LOWER EXTREMITIES: Calves are equal size bilaterally and non-tender. No edema. No discoloration. NEURO: Normal sensorium. No sensory or motor deficits noted. SKIN: Pale. No rashes noted. Procedures Intubation Time out performed: Yes sedative: Etomidate Mg Given: 20 paralytic: Succinylcholine Mg Given: 200 Laryngoscope: Mateus ET Tube Size: 7 ET Tube Uncuffed: Yes Tube Secured Depth (cm): 20 Tube Secured Location: lips Tube Placement Confirmation: visualized tube passing through cords, equal breath sounds bilaterally, no breath sounds over epigastrium and confirmation by capnometry Patient Tolerated Procedure: well and no complications Intubation Complications: none Course 1059: The patient was evaluated in room B1. A complete history and physical examination was performed. 1112: I discussed the patients case with Dr. Garcias ICU. 1129: I discussed the patient's case with Dr. Rc De La Rosa Hospitalist. He will evaluate the patient for further management. Administered Medications Discontinued Medications Albuterol (Duoneb) 12 ml NEB ONE ONE Stop: 09/24/18 11:16 Last Admin: 09/24/18 11:51 Dose: 12 ml Documented by: [id number] Albuterol (Duoneb) 3 ml INH Q6R JOSE MANUEL Stop: 10/24/18 14:14 Last Admin: 09/24/18 18:19 Dose: Not Given Documented by: [id number] Admin: 09/24/18 14:35 Dose: 3 ml Documented by: [id number] Furosemide (Lasix) 40 mg IV NOW STA Stop: 09/24/18 11:23 Last Admin: 09/24/18 11:37 Dose: 40 mg Documented by: [id number] Heparin Sodium (Porcine) (Heparin Sodium (Porcine)) 5,000 units SQ Q8 JOSE MANUEL Stop: 10/24/18 13:59 Last Admin: 09/24/18 14:44 Dose: 5,000 units Documented by: [id number] Cosigned by: [id number] Magnesium Sulfate/Dextrose (Magnesium Sulfate / D5w) 1 gm in 100 mls @ 100 mls/hr IV ONE ONE Stop: 09/24/18 12:14 Last Infusion: 09/24/18 12:32 Dose: 0 mls/hr Documented by: [id number] Admin: 09/24/18 11:37 Dose: 100 mls/hr Documented by: [id number] Piperacillin Sod/Tazobactam Sod (Zosyn) 4.5 gm in 120 mls @ 240 mls/hr IV NOW ONE Stop: 09/24/18 11:51 Last Infusion: 09/24/18 12:11 Dose: 0 mls/hr Documented by: [id number] Admin: 09/24/18 11:40 Dose: 240 mls/hr Documented by: [id number] Vancomycin HCl (Vancomycin Hcl) 1,000 mg in 270 mls @ 125 mls/hr IV NOW STA Stop: 09/24/18 13:31 Last Infusion: 09/24/18 14:50 Dose: 0 mls/hr Documented by: [id number] Admin: 09/24/18 12:00 Dose: 125 mls/hr Documented by: [id number] Levofloxacin/Dextrose (Levaquin/D5w) 750 mg in 150 mls @ 100 mls/hr IV NOW STA Stop: 09/24/18 12:51 Last Infusion: 09/24/18 14:50 Dose: 0 mls/hr Documented by: [id number] Admin: 09/24/18 12:19 Dose: 100 mls/hr Documented by: [id number] Furosemide 40 mg/ Syringe 4 mls @ 4 mls/min IV BID JOSE MANUEL Stop: 10/24/18 13:19 Last Admin: 09/24/18 13:37 Dose: 4 mls/min Documented by: [id number] Methylprednisolone 60 mg/ (Syringe) 0.96 mls @ 1.5 mls/min IV Q8 JOSE MANUEL Stop: 09/26/18 22:01 Last Admin: 09/24/18 14:11 Dose: 1.5 mls/min Documented by: [id number] Insulin Human Regular 250 (units/ Sodium Chloride) 250 mls @ 1.4 mls/hr IV .Q24H JOSE MANUEL; Protocol Stop: 10/24/18 13:59 Last Titration: 09/24/18 17:48 Dose: 1.4 units/hr, 1.4 mls/hr Documented by: [id number] Cosigned by: [id number] Titration: 09/24/18 16:12 Dose: 1.8 units/hr, 1.8 mls/hr Documented by: [id number] Cosigned by: [id number] Titration: 09/24/18 15:16 Dose: 1.8 units/hr, 1.8 mls/hr Documented by: [id number] Cosigned by: [id number] Admin: 09/24/18 14:11 Dose: 2.2 units/hr, 2.2 mls/hr Documented by: [id number] Cosigned by: [id number] Vancomycin HCl 500 mg/ Sodium (Chloride) 110 mls @ 125 mls/hr IV NOW ONE; Protocol Stop: 09/24/18 17:22 Last Admin: 09/24/18 17:49 Dose: 125 mls/hr Documented by: [id number] Piperacillin Sod/Tazobactam (Sod 4.5 gm/ Dextrose) 120 mls @ 30 mls/hr IV Q8H JOSE MANUEL; Protocol Stop: 10/01/18 17:59 Last Admin: 09/24/18 18:30 Dose: Not Given Documented by: [id number] Lorazepam (Ativan) 0.5 mg in 1 mls @ 1 mls/min IV NOW STA Stop: 09/24/18 16:32 Last Admin: 09/24/18 16:38 Dose: 1 mls/min Documented by: [id number] Insulin Aspart (Novolog Flexpen) 0 units SC ACHS [facility] Stop: 10/24/18 16:29 Last Admin: 09/24/18 16:12 Dose: Not Given Documented by: [id number] Cosigned by: [id number] Insulin Human Regular (Novolin R Bolus From Bag) 2 units IV TODAY@1400 ONE Stop: 09/24/18 14:01 Last Admin: 09/24/18 14:15 Dose: 2 units Documented by: [id number] Cosigned by: [id number] Ioversol (Optiray 320 125ml) 120 ml IV ONCE PRN PRN Reason: Interaction Checking Stop: 09/28/18 12:50 Last Admin: 09/24/18 12:51 Dose: 120 ml Documented by: [id number] Levalbuterol HCl (Xopenex 1.25mg/0.5ml Neb) 1.25 mg NEB Q6H [facility] Stop: 10/24/18 12:44 Last Admin: 09/24/18 13:54 Dose: Not Given Documented by: [id number] Levalbuterol HCl (Xopenex 1.25mg/0.5ml Neb) 1.25 mg NEB Q6R [facility] Stop: 10/24/18 13:59 Last Admin: 09/24/18 13:16 Dose: Not Given Documented by: [id number] Miscellaneous () Confirm Administered Dose 1 ea .ROUTE .STK-MED ONE Stop: 09/24/18 11:05 Last Admin: 09/24/18 11:08 Dose: 1 ea Documented by: [id number] Miscellaneous (Insulin Protocol Severe Stress) 1 ea N/A ONE ONE Stop: 09/24/18 13:46 Last Admin: 09/24/18 14:44 Dose: 1 ea Documented by: [id number] Miscellaneous (Insulin Protocol Goal Range) 1 ea N/A ONE ONE Stop: 09/24/18 13:46 Last Admin: 09/24/18 14:44 Dose: 1 ea Documented by: [id number] Naloxone HCl (Narcan) Confirm Administered Dose 1.2 mg .ROUTE .STK-MED ONE Stop: 09/24/18 11:03 Last Admin: 09/24/18 11:03 Dose: 0.4 mg Documented by: [id number] Propofol (Diprivan) Confirm Administered Dose 1,000 mg IV .STK-MED ONE Stop: 09/24/18 11:16 Last Admin: 09/24/18 11:38 Dose: 1,000 mg Documented by: [id number] Cosigned by: [id number] [facility] (Norcuron) 10 mg IV NOW STA Stop: 09/24/18 11:15 Last Admin: 09/24/18 11:16 Dose: 10 mg Documented by: [id number] Cosigned by: [id number] Medical Decision Making Differential Diagnosis Differential diagnosis includes: pneumonia, bronchitis, COPD exacerbation, Asthma exacerbation, pneumothorax, PE, CHF, and acute coronary syndrome amongst others. Medical Records Attestation: I reviewed the patient's medical records. Home Medications Current Medication List: was personally reviewed by me Laboratory Data Attestation: I reviewed the patient's lab results. Result diagrams: 09/24/18 11:30 09/24/18 11:30 Lab Results 09/24/18 09/24/18 09/24/18 Range/Units 11:11 11:27 11:30 WBC 17.57 H (4.8-10.8) K/uL RBC 4.07 L (4.2-5.4) M/uL Hgb 13.7 (12.0-16.0) g/dL POC Hgb (12.0-16.0) g/dl Hct 41.6 (37-47) % POC Hct (37-47) % MCV 102.2 H (80-100) fL MCH 33.7 (25-34) pg MCHC 32.9 (32-36) g/dL RDW Std Deviation 49.6 H (36.4-46.3) fL RDW Coeff of Maxim 13.2 (11.5-14.5) % Plt Count 232 (130-400) K/uL MPV 11.7 H (7.4-10.4) fL Immature Gran % (Auto) 0.4 % Neut % (Auto) 42.8 % Lymph % (Auto) 51.5 % [place] % (Auto) 3.9 % Eos % (Auto) 0.9 % Baso % (Auto) 0.5 % Immature Gran # (Auto) 0.07 H (0.00-0.02) K/uL Neut # (Auto) 7.53 H (1.4-6.5) K/uL Lymph # (Auto) 9.04 H (1.2-3.4) K/uL [place] # (Auto) 0.69 H (0.11-0.59) K/uL Eos # (Auto) 0.16 (0-0.5) K/uL Baso # (Auto) 0.08 (0-0.2) K/uL Blood Smear Review Echinocytes 1+ PT (9.0-12.0) Seconds INR (0.9-1.1) APTT (21.0-31.0) Seconds PTT Ratio POC Sodium (135-144) mEq/L Sodium (136-145) mmol/L POC Potassium (3.3-5.0) mEq/L Potassium (3.5-5.1) mmol/L POC Chloride (101-112) mEq/L Chloride (98-107) mmol/L Carbon Dioxide (21-32) mmol/L POC Total CO2 (24-31) mEq/l Anion Gap (3-11) POC Anion Gap (16-25) mmol/L POC BUN (7-18) mg/dl BUN (7-18) mg/dl Creatinine (0.6-1.2) mg/dl POC Creatinine (0.6-1.3) mg/dl Est Cr Clr Drug Dosing Est GFR ( Amer) Est GFR (Non-Af Amer) BUN/Creatinine Ratio (10-20) Glucose (70-99) mg/dl POC Glucose (other) (70-99) mg/dl POC Lactic Acid Martín 3.08 H (0.90-1.70) mmol/L Calcium (8.5-10.1) mg/dl POC Ioniz Calcium [place] (1.12-1.32) mmol/l Total Bilirubin (0.2-1) mg/dl AST (15-37) U/L ALT (12-78) U/L Alkaline Phosphatase (45-117) U/L Total Creatine Kinase (26-192) U/L CK-MB (CK-2) (0.5-3.6) ng/ml CK/CKMB % Calc Troponin I (0-0.045) ng/ml NT-Pro-B Natriuret Pep (0-1800) pg/ml Total Protein (6.4-8.2) gm/dl Albumin (3.4-5.0) gm/dl Globulin (2.5-4.0) gm/dl Albumin/Globulin Ratio (0.9-2) Procalcitonin < 0.05 (0-0.5) ng/ml Specimen Hemolysis 09/24/18 09/24/18 09/24/18 Range/Units 11:30 11:30 11:31 WBC (4.8-10.8) K/uL RBC (4.2-5.4) M/uL Hgb (12.0-16.0) g/dL POC Hgb 13.9 (12.0-16.0) g/dl Hct (37-47) % POC Hct 41 (37-47) % MCV (80-100) fL MCH (25-34) pg MCHC (32-36) g/dL RDW Std Deviation (36.4-46.3) fL RDW Coeff of Maxim (11.5-14.5) % Plt Count (130-400) K/uL MPV (7.4-10.4) fL Immature Gran % (Auto) % Neut % (Auto) % Lymph % (Auto) % [place] % (Auto) % Eos % (Auto) % Baso % (Auto) % Immature Gran # (Auto) (0.00-0.02) K/uL Neut # (Auto) (1.4-6.5) K/uL Lymph # (Auto) (1.2-3.4) K/uL [place] # (Auto) (0.11-0.59) K/uL Eos # (Auto) (0-0.5) K/uL Baso # (Auto) (0-0.2) K/uL Blood Smear Review Echinocytes PT 10.1 (9.0-12.0) Seconds INR 1.0 (0.9-1.1) APTT 23.9 (21.0-31.0) Seconds PTT Ratio 0.9 POC Sodium 143 (135-144) mEq/L Sodium 143 (136-145) mmol/L POC Potassium 4.0 (3.3-5.0) mEq/L Potassium 4.0 (3.5-5.1) mmol/L POC Chloride 104 (101-112) mEq/L Chloride 109 H (98-107) mmol/L Carbon Dioxide 27 (21-32) mmol/L POC Total CO2 28 (24-31) mEq/l Anion Gap 7.0 (3-11) POC Anion Gap 17.0 (16-25) mmol/L POC BUN 20 H (7-18) mg/dl BUN 17 (7-18) mg/dl Creatinine 1.36 H (0.6-1.2) mg/dl POC Creatinine 1.2 (0.6-1.3) mg/dl Est Cr Clr Drug Dosing Not Reportable Est GFR ( Amer) 43.4 Est GFR (Non-Af Amer) 37.4 BUN/Creatinine Ratio 12.5 (10-20) Glucose 261 H (70-99) mg/dl POC Glucose (other) 259 H (70-99) mg/dl POC Lactic Acid Martín (0.90-1.70) mmol/L Calcium 8.8 (8.5-10.1) mg/dl POC Ioniz Calcium [place] 1.21 (1.12-1.32) mmol/l Total Bilirubin 0.4 (0.2-1) mg/dl AST 30 (15-37) U/L ALT 24 (12-78) U/L Alkaline Phosphatase 78 (45-117) U/L Total Creatine Kinase 42 (26-192) U/L CK-MB (CK-2) < 1.0 (0.5-3.6) ng/ml CK/CKMB % Calc TNP Troponin I < 0.015 (0-0.045) ng/ml NT-Pro-B Natriuret Pep 5701 H (0-1800) pg/ml Total Protein 7.1 (6.4-8.2) gm/dl Albumin 3.1 L (3.4-5.0) gm/dl Globulin 4.0 (2.5-4.0) gm/dl Albumin/Globulin Ratio 0.8 L (0.9-2) Procalcitonin (0-0.5) ng/ml Specimen Hemolysis Imaging Data Radiologist's Impression: Radiology results as stated below per my review and the radiologist's interpretation: XR chest 1V portable HISTORY: 78 years-old Female Sepsis acute sepsis COMPARISON: Chest radiograph 11/12/2011 TECHNIQUE: Supine AP view of the chest FINDINGS: Cardiac silhouette is upper limits of normal in size. Mitral annular calcifications noted. Calcification the thoracic aortic arch. Left subclavian pacer/AICD redemonstrated. No pneumothorax. Blunting of the costophrenic angles with hyperinflation. Bilateral right greater than left mixed interstitial and alveolar opacities are noted. Lungs are hyperinflated. Degenerative changes of the shoulders and spine. Endotracheal tube overlies the midline, 5.6 cm superior to the urmila. IMPRESSION: 1. Endotracheal tube terminates 5.6 cm superior to the urmila. 2. Right greater than left bilateral mixed interstitial and alveolar opacities are suggestive of multifocal pneumonia with asymmetric pulmonary edema considered less likely. 3. Possible trace pleural effusions. The above report was generated using voice recognition software. It may contain grammatical, syntax or spelling errors. Electronically signed by: Stas Ordaz M.D. 09/24/2018 11:31 AM ECG Data Attestation: I personally reviewed and interpreted this ECG as follows: Indication: SOB/dyspnea Rate (beats per minute): 96 Findings: + paced rhythm; no ST depression and no ST elevation Blood Pressure Blood Pressure Findings: Elevated blood pressure Blood Pressure Disposition: further management by hospitalist MDM Narrative This is a 78-year-old female who presents the emergency department in acute distress. The patient is not breathing on her own and her sats are in the 80s. There is no family no power of assistant attorney general present. EMS is unsure of her CODE STATUS. Because of this emergent action was immediately started. The patient was intubated as above and a full work-up was initiated. The patient was given Narcan to which she did not respond to. She was given etomidate and succinylcholine for intubation she was then given vecuronium as well as a propofol drip. She was pancultured and started on antibiotics including Zosyn Levaquin and vancomycin. I did discuss the case with the hospitalist service as well as the ICU. She does have an elevation in her white blood cell count her glucose is also elevated. Her lactic acid was also found to be elevated. A Newman catheter was inserted. Impression & Plan COPD (chronic obstructive pulmonary disease), Acute respiratory failure requiring reintubation Critical Care Time Critical Care Time: Yes Total Critical Care Time: 90 I have personally spent 90 minutes of critical care time in the direct management of this patient. This includes bedside care, interpretation of diagnostic studies, and testing, discussion with consultants, patient, and family members, and other required patient management activities. These 90 minutes are in excess of all separately billable procedures. Discharge Plan Visit Data *Final* Discharge Date/Time: 09/24/18 12:32 Chief Complaint: Shortness of Breath/Dyspnea ED Provider: Galen Morrell Discharge Problem: COPD (chronic obstructive pulmonary disease), Acute respiratory failure requiring reintubation Patient Disposition: Admitted As Inpatient Discharge Instructions Interventions: ED Discharge Assessment Last Done: 09/24/18 12:32 The scribe's documentation has been prepared under my direction and personally reviewed by me in its entirety. I confirm that the note above accurately reflects all work, treatment, procedures, and medical decision making performed by me.
--- NOTE | 2018-09-24 17:08 | Critical Care Consultation ---
Date of Consultation September 24, 2018 Assessment & Plan (1) Admitted to intensive care unit: Reason Critically Ill: Acute respiratory failure secondary to COPD exacerbation Neuro - [facility] ICU: Patient alert and oriented x3. All sedation stopped. Patient able to cooperate in discussion with daughter and [id number] present Cardiac - History of ischemic cardiomyopathy Hemodynamically stable No chest pain or tightness Respiratory - Acute respiratory failure secondary COPD exacerbation Patient intubated in the emergency department Living well indicates no endotracheal intubation or mechanical ventilation or cardiopulmonary resuscitation Long discussion with patient who is lucid as well as family members. * Patient desires terminal extubation * Will pretreat and then extubate once the patient's family is been able to meet with her GI - No nausea or vomiting. No stomach pain. RENAL/LYTES - Electrolytes balanced. Follow serial labs BUN 17; creatinine 1.36 -patient with history of stage III chronic kidney disease. Appears to be euvolemic - Newman catheter in place. No hematuria. ENDO - Patient with type 2 diabetes managed with oral medications and diet. Nonobese Basal insulin plus sliding scale insulin Hold all outside oral medications Check hemoglobin A1c HEME - Hemoglobin 13.7 hematocrit 41.6 platelet count 232 ID - Treat empirically for pneumonia WBC 17.57 Afebrile Follow LINES/IV ACCESS - Peripheral IVs in place No indication for central line at this time DVT PROPHYLAXIS - Heparin subcu Patient bedbound cannot ambulate secondary to acute illness CCT: 80 minutes independent of any procedures occluding significant discussion with family on multiple occasions as well as with other providers Thank you for including us in the care of this patient. Please refer to Dr. Garcias's addendum for further recommendations. Present on Admission?: Yes (2) Acute respiratory failure with hypoxia and hypercapnia: (3) COPD (chronic obstructive pulmonary disease): (4) Cardiomyopathy: (5) Diabetes mellitus type 2 in nonobese: (6) Pulmonary hypertension: (7) Chronic kidney disease, stage 3: (8) Major depressive disorder: Supervising Physician Co-Signing Physician Notes I have seen and examined this patient with Edis Palacios and agree with his assessment and plan of care. We are going to continue with current plan of care as prescribed. Dr. Jaylen Garcias. History of Present Illness Attending Physician: Layne Piña MD History of Present Illness Is a 78-year-old female that presented with extreme shortness of breath and respiratory failure with hypercapnia and hypoxia to the emergency department. On presentation she was found to be in extremis and was intubated and placed on mechanical ventilation. An OG tube was placed at the same time with no difficulty. The patient was brought to the intensive care unit and placed in room 103. A weaning trial was attempted and patient was found to be apneic. All sedation was weaned off and patient was lucid and requested extubat ion. The patient is a lifetime smoker of 1-1/2 to 2 packs/day and has severe COPD. Once the patient was alert and oriented she was adamant that she wanted to be extubated knowing that this may lead to . There is long discussion with the family who agreed to support her decision. Epic records were obtained which indicated a living well that reflected no life-saving measures including mechanical ventilation and CPR. This was confirmed with the patient as well as the patient's daughter Alaina Ivory and her son Gonzales Dimas. The patient has a past medical history including ischemic heart disease, cardiomyopathy, systolic heart failure, kidney disease stage III, diabetes mellitus type 2, history of carotid artery stenosis, tobacco abuse disorder, pulmonary hypertension, dyslipidemia, multinodular goiter, vitamin D deficiency, osteoporosis, history of left breast cancer, arterial vascular disease, and biventricular pacer/defibrillator. Allergies Allergy/AdvReac Type Severity Reaction Status Date / Time No Known Allergies Allergy Unknown Verified 09/25/17 06:31 Home Medications Home Medications Medication Instructions Recorded Confirmed Type acetaminophen [Tylenol] 325 mg PO Q6H PRN 09/24/18 09/24/18 History albuterol sulfate [ProAir HFA] 2 puff INHALATION Q4H PRN 09/24/18 09/24/18 History alendronate 70 mg PO WK 09/24/18 09/24/18 History aspirin 325 mg PO DAILY 09/24/18 09/24/18 History atorvastatin 40 mg PO DAILY 09/24/18 09/24/18 History calcium carbonate [Calcium 600] 600 mg PO DAILY 09/24/18 09/24/18 History furosemide 20 mg PO DAILY 09/24/18 09/24/18 History gabapentin 300 mg PO TID 09/24/18 09/24/18 History isosorbide mononitrate 30 mg PO DAILY 09/24/18 09/24/18 History levalbuterol HCl [Xopenex] 0.63 mg INHALATION QID PRN 09/24/18 09/24/18 History metformin 1,000 mg PO BID 09/24/18 09/24/18 History metoprolol succinate 50 mg PO BID 09/24/18 09/24/18 History multivitamin 1 tab PO DAILY 09/24/18 09/24/18 History prednisone 0 mg PO UD 09/24/18 09/24/18 History tiotropium bromide [Spiriva with 1 cap INHALATION DAILY 09/24/18 09/24/18 History HandiHaler] Patient History Medical History COPD (chronic obstructive pulmonary disease) (Chronic) Acute respiratory failure with hypoxia and hypercapnia Cardiomyopathy Chronic kidney disease, stage 3 Diabetes mellitus type 2 in nonobese Major depressive disorder Pulmonary hypertension Surgical History AICD (automatic cardioverter/defibrillator) present History of right-sided carotid endarterectomy Family History Other Medical history non-contributory Social History Preferred Language: Amharic Communication Ability: intubated Communication Ability Comment: intubated Taxicab Coordinator Required: No Beliefs That Will Affect Care: None marital status: / marital status details: 15 years ago Current Living Situation: Alone current occupational status: retired Other Information That Helps Us Care for You: No Feels Safe at Home: Yes Safety Concerns: Feels Safe At This Time Smoking Status: Heavy tobacco smoker Tobacco Type: cigarettes Years Smoked: 44 Cigarettes Per Day: 2 packs per day Do You Dip or Chew Tobacco: No Hx Alcohol Use: No Hx Substance Use: No Review of Systems Review of Systems: All systems reviewed & are unremarkable except as noted in HPI & below Physical Exam Physical Exam: GENERAL : No acute distress. Patient is intubated and awake and alert EYES: No icterus, gaze conjugate. Pupils equal round and reactive to light NOSE: No evidence of epistaxis. MOUTH: No lesions or candidiasis mucosa dry. Endotracheal tube in place. Orogastric tube in place. NECK: Supple. No JVD. No appreciation of stridor, air leak, carotid bruits LUNGS: Breath sounds are coarse bilaterally with minimal air exchange. HEART: Regular, rate controlled. Heart rate is 82 ABDOMEN: Soft, NT, ND, BS Present EXTREMITIES: No LE edema, pedal pulses intact NEURO: A&OX3. Sedation has been stopped and patient is able to answer questions appropriately. No focal deficits appreciated. Results & Data Vital Signs (Past 12 Hours) Vital Signs Temp Pulse Pulse Resp BP BP Pulse Ox 09/24/18 15:01 89 16 91 09/24/18 15:00 89 16 123/78 91 09/24/18 14:45 16 09/24/18 14:00 36.6 C 83 87 16 115/65 109/81 93 09/24/18 13:07 87 16 93 09/24/18 13:02 36.6 C 48 L 17 109/81 94 09/24/18 13:00 86 16 94 09/24/18 12:18 95 H 140/88 90 09/24/18 12:16 94 H 90 09/24/18 12:10 93 H 135/97 93 09/24/18 12:05 92 H 149/77 H 95 09/24/18 12:00 95 H 151/81 H 95 09/24/18 11:55 96 H 157/84 H 93 09/24/18 11:54 36.6 C 09/24/18 11:51 95 H 143/68 H 96 09/24/18 11:47 90 14 96 09/24/18 11:45 94 H 124/81 96 09/24/18 11:40 94 H 129/89 95 09/24/18 11:37 90 14 96 09/24/18 11:35 92 H 137/76 96 09/24/18 11:30 90 136/71 96 09/24/18 11:26 88 96 09/24/18 11:25 86 116/69 96 09/24/18 11:21 85 100/66 97 09/24/18 11:20 45 L 97 09/24/18 11:15 87 133/71 97 09/24/18 11:14 93 H 121/100 95 09/24/18 11:10 98 H 95 09/24/18 11:05 103 H 85 L 09/24/18 11:04 102 H 85 L 09/24/18 11:02 103 H 132/86 82 L Laboratory Results 09/24/18 11:30 09/24/18 11:30 09/24/18 09/24/18 09/24/18 11:11 11:27 11:30 WBC 17.57 H RBC 4.07 L Hgb 13.7 POC Hgb Hct 41.6 POC Hct MCV 102.2 H MCH 33.7 MCHC 32.9 RDW Std Deviation 49.6 H RDW Coeff of Maxim 13.2 Plt Count 232 MPV 11.7 H Immature Gran % (Auto) 0.4 Neut % (Auto) 42.8 Lymph % (Auto) 51.5 Millard % (Auto) 3.9 Eos % (Auto) 0.9 Baso % (Auto) 0.5 Immature Gran # (Auto) 0.07 H Neut # (Auto) 7.53 H Lymph # (Auto) 9.04 H Millard # (Auto) 0.69 H Eos # (Auto) 0.16 Baso # (Auto) 0.08 Blood Smear Review Echinocytes 1+ PT INR APTT PTT Ratio Sample Site POC pH POC pCO2 POC pO2 POC HCO3 POC Base Excess ABG pH (Temp Correct) ABG pCO2 (Temp Corrct POC ABG pO2 at Pt Temp POC ABG O2 Sat Dung Test O2 Delivery Device POC O2 Rate Minute Ventilation POC FiO2 Tidal Volume PEEP POC Sodium Sodium POC Potassium Potassium POC Chloride Chloride Carbon Dioxide POC Total CO2 Anion Gap POC Anion Gap POC BUN BUN Creatinine POC Creatinine Est Cr Clr Drug Dosing Est GFR ( Amer) Est GFR (Non-Af Amer) BUN/Creatinine Ratio Glucose POC Glucose POC Glucose (other) POC Lactic Acid Martín 3.08 H Calcium POC Ioniz Calcium Alma Rosa Total Bilirubin AST ALT Alkaline Phosphatase Total Creatine Kinase CK-MB (CK-2) CK/CKMB % Calc Troponin I NT-Pro-B Natriuret Pep Total Protein Albumin Globulin Albumin/Globulin Ratio Procalcitonin < 0.05 Specimen Hemolysis Urine Color Urine Appearance Urine pH Ur Specific [place] Urine Protein Urine Glucose (UA) Urine Ketones Urine Blood Urine Nitrite Urine Bilirubin Urine Urobilinogen Ur Leukocyte Esterase Urine WBC (Auto) Urine RBC (Auto) U Hyaline Cast (Auto) U Epithel Cells (Auto) Urine Bacteria (Auto) Urine Yeast 09/24/18 09/24/18 09/24/18 11:30 11:30 11:31 WBC RBC Hgb POC Hgb 13.9 Hct POC Hct 41 MCV MCH MCHC RDW Std Deviation RDW Coeff of Maxim Plt Count MPV Immature Gran % (Auto) Neut % (Auto) Lymph % (Auto) Millard % (Auto) Eos % (Auto) Baso % (Auto) Immature Gran # (Auto) Neut # (Auto) Lymph # (Auto) Millard # (Auto) Eos # (Auto) Baso # (Auto) Blood Smear Review Echinocytes PT 10.1 INR 1.0 APTT 23.9 PTT Ratio 0.9 Sample Site POC pH POC pCO2 POC pO2 POC HCO3 POC Base Excess ABG pH (Temp Correct) ABG pCO2 (Temp Corrct POC ABG pO2 at Pt Temp POC ABG O2 Sat Dung Test O2 Delivery Device POC O2 Rate Minute Ventilation POC FiO2 Tidal Volume PEEP POC Sodium 143 Sodium 143 POC Potassium 4.0 Potassium 4.0 POC Chloride 104 Chloride 109 H Carbon Dioxide 27 POC Total CO2 28 Anion Gap 7.0 POC Anion Gap 17.0 POC BUN 20 H BUN 17 Creatinine 1.36 H POC Creatinine 1.2 Est Cr Clr Drug Dosing Not Reportable Est GFR ( Amer) 43.4 Est GFR (Non-Af Amer) 37.4 BUN/Creatinine Ratio 12.5 Glucose 261 H POC Glucose POC Glucose (other) 259 H POC Lactic Acid Martín Calcium 8.8 POC Ioniz Calcium Alma Rosa 1.21 Total Bilirubin 0.4 AST 30 ALT 24 Alkaline Phosphatase 78 Total Creatine Kinase 42 CK-MB (CK-2) < 1.0 CK/CKMB % Calc TNP Troponin I < 0.015 NT-Pro-B Natriuret Pep 5701 H Total Protein 7.1 Albumin 3.1 L Globulin 4.0 Albumin/Globulin Ratio 0.8 L Procalcitonin Specimen Hemolysis Urine Color Urine Appearance Urine pH Ur Specific [place] Urine Protein Urine Glucose (UA) Urine Ketones Urine Blood Urine Nitrite Urine Bilirubin Urine Urobilinogen Ur Leukocyte Esterase Urine WBC (Auto) Urine RBC (Auto) U Hyaline Cast (Auto) U Epithel Cells (Auto) Urine Bacteria (Auto) Urine Yeast 09/24/18 09/24/18 09/24/18 12:00 13:33 15:14 WBC RBC Hgb POC Hgb Hct POC Hct MCV MCH MCHC RDW Std Deviation RDW Coeff of Maxim Plt Count MPV Immature Gran % (Auto) Neut % (Auto) Lymph % (Auto) Millard % (Auto) Eos % (Auto) Baso % (Auto) Immature Gran # (Auto) Neut # (Auto) Lymph # (Auto) Millard # (Auto) Eos # (Auto) Baso # (Auto) Blood Smear Review Echinocytes PT INR APTT PTT Ratio Sample Site POC pH POC pCO2 POC pO2 POC HCO3 POC Base Excess ABG pH (Temp Correct) ABG pCO2 (Temp Corrct POC ABG pO2 at Pt Temp POC ABG O2 Sat Dung Test O2 Delivery Device POC O2 Rate Minute Ventilation POC FiO2 Tidal Volume PEEP POC Sodium Sodium POC Potassium Potassium POC Chloride Chloride Carbon Dioxide POC Total CO2 Anion Gap POC Anion Gap POC BUN BUN Creatinine POC Creatinine Est Cr Clr Drug Dosing Est GFR ( Amer) Est GFR (Non-Af Amer) BUN/Creatinine Ratio Glucose POC Glucose 301 H* 176 H POC Glucose (other) POC Lactic Acid Martín Calcium POC Ioniz Calcium Alma Rosa Total Bilirubin AST ALT Alkaline Phosphatase Total Creatine Kinase CK-MB (CK-2) CK/CKMB % Calc Troponin I NT-Pro-B Natriuret Pep Total Protein Albumin Globulin Albumin/Globulin Ratio Procalcitonin Specimen Hemolysis Urine Color Yellow Urine Appearance Turbid A Urine pH 5.5 Ur Specific [place] 1.016 Urine Protein 3+ H Urine Glucose (UA) Negative Urine Ketones Negative Urine Blood 2+ H Urine Nitrite Positive A Urine Bilirubin Negative Urine Urobilinogen Negative Ur Leukocyte Esterase 3+ H Urine WBC (Auto) >30 H Urine RBC (Auto) 10-30 H U Hyaline Cast (Auto) 0 U Epithel Cells (Auto) >30 H Urine Bacteria (Auto) 4+ H Urine Yeast Not Reportable 09/24/18 09/24/18 15:57 16:10 WBC RBC Hgb POC Hgb Hct POC Hct MCV MCH MCHC RDW Std Deviation RDW Coeff of Maxim Plt Count MPV Immature Gran % (Auto) Neut % (Auto) Lymph % (Auto) Millard % (Auto) Eos % (Auto) Baso % (Auto) Immature Gran # (Auto) Neut # (Auto) Lymph # (Auto) Millard # (Auto) Eos # (Auto) Baso # (Auto) Blood Smear Review Echinocytes PT INR APTT PTT Ratio Sample Site L Radial POC pH 7.24 L POC pCO2 57 H POC pO2 63 L POC HCO3 24 POC Base Excess -3.0 ABG pH (Temp Correct) 7.239 L ABG pCO2 (Temp Corrct 57 H POC ABG pO2 at Pt Temp 63 POC ABG O2 Sat 87.0 L Dung Test Pass O2 Delivery Device Ventilator POC O2 Rate 16 Minute Ventilation 7 POC FiO2 50 Tidal Volume 450 PEEP 5 POC Sodium Sodium POC Potassium Potassium POC Chloride Chloride Carbon Dioxide POC Total CO2 26 Anion Gap POC Anion Gap POC BUN BUN Creatinine POC Creatinine Est Cr Clr Drug Dosing Est GFR ( Amer) Est GFR (Non-Af Amer) BUN/Creatinine Ratio Glucose POC Glucose 155 H POC Glucose (other) POC Lactic Acid Martín Calcium POC Ioniz Calcium Alma Rosa Total Bilirubin AST ALT Alkaline Phosphatase Total Creatine Kinase CK-MB (CK-2) CK/CKMB % Calc Troponin I NT-Pro-B Natriuret Pep Total Protein Albumin Globulin Albumin/Globulin Ratio Procalcitonin Specimen Hemolysis Urine Color Urine Appearance Urine pH Ur Specific [place] Urine Protein Urine Glucose (UA) Urine Ketones Urine Blood Urine Nitrite Urine Bilirubin Urine Urobilinogen Ur Leukocyte Esterase Urine WBC (Auto) Urine RBC (Auto) U Hyaline Cast (Auto) U Epithel Cells (Auto) Urine Bacteria (Auto) Urine Yeast Diagnostic Findings CT SCAN OF THE BRAIN WITHOUT IV CONTRAST CLINICAL HISTORY: Change in mental status COMPARISON STUDY: No priors. TECHNIQUE: Unenhanced axial CT scan of the brain is performed from the vertex to the skull base. A dose lowering technique was utilized adhering to the principles of ALARA. FINDINGS: Brain parenchyma: There are age-related involutional changes noting mild subcortical and periventricular microangiopathic change. There is no hemorrhage, mass effect, or evidence of acute territorial ischemia by CT criteria. A small chronic lacunar infarct is noted in the left cerebellar hemisphere. Zapien-white matter differentiation is preserved. No extra-axial fluid collection is seen. Ventricles, sulci, cisterns: Prominent secondary to involutional change. Intracranial vasculature: There is atherosclerotic calcification of the cavernous carotid and vertebral arteries. Calvarium: Unremarkable. Sinuses and mastoids: The visualized paranasal sinuses are clear. The mastoid air cells are well pneumatized. Orbits: The bony orbits are grossly intact. There are bilateral ocular lens implants. IMPRESSION: There is no hemorrhage, mass effect, or evidence of acute territorial ischemia by CT criteria. Electronically signed by: Edis Herrera M.D. 09/24/2018 12:[address] angio chest PE protocol CT DOSE: HISTORY: Chest pain PE TECHNIQUE: Multiaxial CT images of the chest were performed following the intravenous administration of contrast to evaluate the pulmonary arteries. Maximal intensity projection images were also obtained. A dose lowering technique was utilized adhering to the principles of ALARA. COMPARISON STUDY: None. FINDINGS: Pulmonary vasculature enhances appropriately. There are no fixed fi lling defects. Heart is mildly enlarged. Thoracic aorta is negative for aneurysm. There is no endotracheal tube 4.5 cm above the urmila. Nasogastric tube within the stomach. Attenuation of lung parenchyma shows diffuse bilateral parenchymal infiltrative change versus component of pulmonary edema. There are small bilateral pleural effusions. Limited evaluation of the upper abdomen is unremarkable. IMPRESSION: 1. No evidence of pulmonary embolus.. 2. Findings of diffuse bilateral pulmonary edema versus diffuse bilateral parenchymal infiltrative change. 3. A moderate amount of debris is identified within the proximal to mid bronchial system. 4. Small bilateral pleural effusions. 5. Tube positions as noted and considered acceptable. Electronically signed by: Eugene Simental M.D. 09/24/2018 1:09 PM PG Care Time/CCT Total # of Minutes Spent Total Time Spent: 80 Total Time Spent with Patient: Total time spent is greater than 50% in coordination of care (as documented) at patient's floor/unit and/or counseling patient: 80 Critical Care Time: Yes Total Critical Care Time: 80
[2018-09-24] MEDS ORDERED: PIPERACILLIN/TAZOBACTAM 4.5 GM in DEXTROSE 5% 100 ML IV SCH (18:00)
--- NOTE | 2018-09-24 19:09 | Discharge Summary ---
Date of Service September 24, 2018 Admission HPI Per Admitting Provider as per 08/19/18 cardiology notes: "History includes chronic ischemic heart disease with diffuse multifactorial cardiomyopathy, Class III congestive heart failure s/p 01/2006 biventricular pacemaker/defibrillator implantation with generator exchange and RV lead replacement in June 2011 (last generator exchange on September 25, 2017), severe chronic obstructive pulmonary disease with hypoxemia (O2 QHS) and continued tobacco abuse, type II diabetes mellitus, stage III chronic kidney disease, carotid occlusive disease S/P right carotid endarterectomy, prior cerebral infarction, hypertension, hyperlipidemia, breast cancer, obesity, arthritis, and depression" patient was intubated in the emergency room on 09/14/18 for acute respiratory failure by ED physician and started on broad spectrum antibiotics and ED provider concerned whether there was CHF exacerbation. ICU was contacted. Hospitalist was also contacted for admission History could not be obtained from patient as she was intubated an sedated. As per outpatient Living Will uploaded to outpatient [facility] [employer] records, patient had signed on 08/25/03 Living Will that if patient was in a terminal ondition or in a state of permanent unconsciousness that she do no want cardiac resuscitation, do not want mechanical respiration, do not want tube feeding or any artificial form of nutrition, do not want blood or blood product, do not want any form of surgery of invasive diagnostic tests, kidney dialysis, do no want antibiotics. Patient had designated in the Living Will the surrogate who is Gonzales Braxton [phone] who is patient's family member (son) who was not available to discuss when patient in the ED ICU staff and hospitalist was able to contact on telephone Alaina Ivory [phone] on goals of care and she said she will discuss further with medical providers after talking with other family members Admission Exam Per Admitting Provider Constitutional: intubated Eyes: + dilated pupils Neck: normal visual inspection Respiratory: intubate don mechanical ventiltation Cardiovascular: Rate/Rhythm: regular rate and regular rhythm Gastrointestinal (Abdomen): normal bowel sounds, soft, nontender, no hepatosplenomegaly Musculoskeletal: Head/Neck/Chest: normocephalic and head atraumatic Neurologic: obtunded, sedated. eyes are minimally reactive to light Genitourinary: wren Principal Diagnosis cause of as acute respiratory failure secondary to COPD exacerbation secondary to pneumonia secondary to acute on chronic systolic heart failure Discharge Exam patient , nonresponsive, no respiration Discharge Data Allergies Allergy/AdvReac Type Severity Reaction Status Date / Time No Known Allergies Allergy Unknown Verified 09/25/17 06:31 Consultations 09/24/18 11:12 Consult Business Support Manager Stat 09/24/18 11:30 ED Decision to Admit Stat 09/24/18 12:00 Consult Case Management - Discharge Planning Routine Consult Business Support Manager Routine Ordered Studies 09/24/18 11:11 CT abd pelvis IV con only Stat CT angio chest PE protocol Stat CT head/brain wo con Stat 09/24/18 11:32 CT angio head w con Stat CT angio neck with con Stat Hospital Course (1) Acute respiratory failure requiring reintubation: -patient was intubated in the emergency room on 09/14/18 for acute respiratory failure by ED physician acute respiratory failure may be due to acute on chronic systolic heart failure vs pneumonia vs COPD exacerbation -admission CXR: Right greater than left bilateral mixed interstitial and alveolar opacities are suggestive of multifocal pneumonia with asymmetric pulmonary edema considered less likely. Possible trace pleural effusions. -on mechanical intubation -history of COPD and tobacco use, give nebulizer treatments q6 hours, advise tobacco cessation when patient can be extubated an stable -started empirically on Zosyn and Levaquin antibiotic by ED provider, continue for now, follow blood cultures and procalcitonin -chronic ischemic heart disease with diffuse multifactorial cardiomyopathy, Class III congestive heart failure s/p 01/2006 biventricular pacemaker/defibrillator implantation with generator exchange and RV lead replacement in June 2011 (last generator exchange on September 25, 2017) -obtain repeat echocardiogram -admission BNP above 5000, start Lasix 40 mg IV BID as blood pressure tolerates -as patient is intubated, will hold off long acting Metoprolol succinate 50 mg BID as updated in 08/28/18 outpatient cardiology notes -use metoprolol 5 mg IV q4 hours as needed if heart rate above 110 bpm -hold off home dose isosorbide 30 mg daily for now -hold off atorvastatin for now -continue wren while intubated -ICU admission from ED on 09/24/18, appreciate ICU recommendations and management Type 2 diabetes mellitus without assisted current use of insulin -outpatient HbA1c under 6.5 -hold off metformin for now -sliding scale insulin as needed chronic kidney disease -as per outpatient notes -renally dose medications as needed -monitor renal function other pertinent medical issues in the past as per outpatient notes carotid occlusive disease S/P right carotid endarterectomy, prior cerebral infarction -continue home dose aspirin 324 mg daily DVT ppx: heparin subcut q 8 hours Code Status -patient was intubated in the emergency room on 09/14/18 for acute respiratory failure by ED physician -As per outpatient Living Will uploaded to outpatient [facility] [employer] records, patient had signed on 08/25/03 Living Will that if patient was in a terminal ondition or in a state of permanent unconsciousness that she do no want cardiac resuscitation, do not want mechanical respiration, do not want tube feeding or any artificial form of nutrition, do not want blood or blood product, do not want any form of surgery of invasive diagnostic tests, kidney dialysis, do no want antibiotics. -Patient had designated in the Living Will the surrogate who is Gonzales Braxton [phone] who is patient's family member (son) who was not available to discuss when patient in the ED -ICU staff and hospitalist was able to contact on telephone Alaina Cachorro [phone] on goals of care and she said she will discuss further with medical providers after talking with other family members hospital course update September 24, 2018 14:42 as per ICU physician, trial of weaning from ventilator and possible extubation today. patient appears to be awake and follow directions. Patient's family at the bedside including daughter Alaina and she affirms that patient's code status is DNR/DNI and this was also discussed with ICU physician hospital course update September 24, 2018 18:11 patient and family and patient's son Gonzales was counseled by ICU team that during weaning trials it was determined that patient was not ready for extubati on but patient wanted to be extubated despite the fact that this may lead to mortality from acute respiratory failure. Patient and and family counseled of the risk. She is extubated and on high flow humidified air. On exam, patient's breathing is very labored. remains in ICU. Her prognosis is poor hospital course update September 6:50 PM Patient pronounced by ICU physician hospital nursing assistant under the supervision of ICU physician Hospitalist physician certified patient cause of as acute respiratory failure secondary to COPD exacerbation secondary to pneumonia secondary to acute on chronic systolic heart failure Total Time Total Time Spent Total Time Spent (In Minutes): 20 Total Time Includes: Examination of the Patient, Discharge Planning, Medication Reconciliation and Communication With Other Providers Discharge Plan Discharge Items Patient Disposition: Reason For Visit: ACUTE RESPIRATORY FAILURE Follow-up/Referrals: Eugene Zaman MD [Primary Care Provider] - Admission Data Admit Date/Time: 09/24/18 12:00 Attending Provider: Layne Piña Admit Provider: Layne Piña Primary Care Provider: Eugene Zaman Other Providers: Chioma Garcias ; Melvin Tatum Service: Intensive Care Unit
--- NOTE | 2018-09-24 19:11 | Death Summary ---
Date of Service September 24, 2018 Pronouncement Note Date and Time of Date of : 09/24/18 Time of : 18:50 PCOD Preliminary cause of : Acute respiratory failure Contributing Factors (1) Admitted to intensive care unit: (2) Acute respiratory failure with hypoxia and hypercapnia: (3) COPD (chronic obstructive pulmonary disease): (4) Cardiomyopathy: (5) Diabetes mellitus type 2 in nonobese: (6) Pulmonary hypertension: (7) Chronic kidney disease, stage 3: (8) Major depressive disorder: Additional Data Confirmation of : no pulse, no respirations, no heart sounds and pupils fixed and dilated Family: at bedside Attending/PCP notified?: Yes Attending physician: Melvin Tatum MD Was code activated?: No Autopsy requested?: No property insurance claims examiner notified?: Yes Organ bank notified?: No Advance directives: Yes Supervising Physician Co-Signing Physician Notes I have seen and examined this patient with Edis HERNANDEZ and agree with his assessment and plan of care. We are going to continue with current plan of care as prescribed. Dr. Jaylen Garcias.
[2018-09-25] MEDS ORDERED: ASPIRIN 81 MG CHEW PO SCH (09:00)
[2018-09-26] MEDS ORDERED: LEVOFLOXACIN/D5W 750 MG/150 ML BAG IV SCH (12:00)
== END 2018-09-24 18:50 | disposition expired | DRG 208 ==
LOC: ED 10:57 → 1E 12:00